=== PATIENT | female | born 1970 | race Caucasian/White ===

== ENCOUNTER 2020-01-02 15:24 | Outpatient (CLI) | payer OTHER ==
[2020-01-02] MEDS ORDERED: DIPH25CA61 PO (15:48)
[2020-01-02] MEDS ORDERED: sumatriptan PO (15:48)
== END 2020-01-02 23:59 | disposition home or self-care (01) ==
LOC: MERGE 15:24 → STAR 15:24
PROVIDERS: ATTEND Orthopaedic Surgery
DX: Z11.59 Encounter for screening for other viral diseases (principal)
CPT/HCPCS: U0001-CS

== ENCOUNTER 2020-01-08 05:31 | Day surgery (SDC) | payer OTHER ==
[~2020-01-08] VITALS: Ht 170.2 cm; Wt 94.8 kg
[~2020-01-08 05:31] MED LIST: DIPH25CA61 PO; sumatriptan PO
[2020-01-08] MEDS ORDERED: LACTATED RINGERS 1,000 ML IV SCH (05:52)
[2020-01-08] MEDS ORDERED: TUMERIC PO (05:56)
[2020-01-08] MEDS ORDERED: GLUC1CAP48 PO (05:56)
[2020-01-08] MEDS ORDERED: LORA10TA72 PO (05:56)
[2020-01-08] MEDS ORDERED: MULT-658 PO (05:56)
[2020-01-08] MEDS ORDERED: CHOL10003 PO (05:56)
[2020-01-08 05:58] VITALS: BP 112/80
[2020-01-08] MEDS ORDERED: LIDOCAINE-MPF 1%, 2ML INFIL ONE (06:00)
[2020-01-08] MEDS ORDERED: CHLORHEXIDINE 15 ML UDC MM ONE (06:00)
[2020-01-08] MEDS ORDERED: PHENYLEPHRINE 10 MG/ML ONE (06:06)
[2020-01-08] MEDS ORDERED: ROPIvacaine/PF 0.2%, 20 ML ONE ×3 (06:08)
[2020-01-08] MEDS ORDERED: MIDAZOLAM 1 MG/ML, 2ML ONE (06:10)
[2020-01-08] MEDS ORDERED: KETOROLAC 30 MG/1 ML ONE (06:10)
[2020-01-08] MEDS ORDERED: FENTANYL PF 250 MCG/5ML ONE (06:10)
[2020-01-08] MEDS ORDERED: DEXAMETHASONE 4 MG/ML, 1ML ONE (06:12)
[2020-01-08] MEDS ORDERED: GLYCOPYRROLATE 0.2MG/1ML, 5ML ONE (06:12)
[2020-01-08] MEDS ORDERED: ROCURONIUM 10MG/ML,5ML ONE (06:12)
[2020-01-08] MEDS ORDERED: CEFAZOLIN 1,000 MG ONE (06:12)
[2020-01-08] MEDS ORDERED: PROPOFOL 10 MG/ML, 20ML ONE (06:12)
[2020-01-08] MEDS ORDERED: ONDANSETRON 2MG/ML, 2ML ONE (06:12)
[2020-01-08] MEDS ORDERED: NEOSTIGMINE 1 MG/ML, 10ML ONE (06:12)
[2020-01-08] MEDS ORDERED: BUPIVACAINE/PF-EPI 0.25% 1:200K ONE (06:17)
[2020-01-08] MEDS ORDERED: FENTANYL PF 100 MCG/2ML IV PRN (06:30)
[2020-01-08] MEDS ORDERED: HYDROmorphone 1 MG/ML, 1ML INJ IVPush PRN (06:30)
[2020-01-08] MEDS ORDERED: ACETAMINOPHEN 500 MG TABLET PO ONE (06:30)
[2020-01-08] MEDS ORDERED: GABAPENTIN 300 MG CAPSULE PO ONE (06:30)
[2020-01-08] MEDS ORDERED: morphine SULFATE 10 MG/ML, 1ML IVPush PRN (06:30)
[2020-01-08] MEDS ORDERED: MEPERIDINE/PF 25MG/0.5ML IVPush PRN (06:30)
[2020-01-08] MEDS ORDERED: PROMETHAZINE 25 MG/ML, 1ML IVPush PRN (06:30)
[2020-01-08] MEDS ORDERED: HALOPERIDOL 5 MG/ML IV PRN (06:30)
[2020-01-08] MEDS ORDERED: LABETALOL 5MG/ML, 20ML IV PRN (06:30)
[2020-01-08] MEDS ORDERED: SCOPOLAMINE 1MG PATCH TD SCH (06:30)
[2020-01-08] MEDS ORDERED: OXYcodone 5 MG/5 ML ORAL.SOL UDC PO PRN (06:30)
[2020-01-08] MEDS ORDERED: hydrALAzine 20 MG/ML, 1ML IV PRN (06:30)
[2020-01-08] MEDS ORDERED: OXYcodone 5 MG/5 ML ORAL.SOL UDC ONE (08:52)
[2020-01-08] MEDS ORDERED: FENTANYL PF 100 MCG/2ML ONE (09:11)
== END 2020-01-08 11:05 | disposition home or self-care (01) ==
LOC: OUT 05:31
PROVIDERS: ATTEND Orthopaedic Surgery
DX: S46.011A Strain of muscle(s) and tendon(s) of the rotator cuff of right shoulder, initial encounter (principal); S43.431A Superior glenoid labrum lesion of right shoulder, initial encounter; S43.51XA Sprain of right acromioclavicular joint, initial encounter; M75.41 Impingement syndrome of right shoulder; G43.909 Migraine, unspecified, not intractable, without status migrainosus; M79.7 Fibromyalgia; Z79.1 Long term (current) use of non-steroidal anti-inflammatories (NSAID); Z79.899 Other long term (current) drug therapy; Z88.2 Allergy status to sulfonamides; Z82.61 Family history of arthritis; Z82.3 Family history of stroke; Z82.49 Family history of ischemic heart disease and other diseases of the circulatory system; X58.XXXA Exposure to other specified factors, initial encounter; Y93.89 Activity, other specified; Y92.89 Other specified places as the place of occurrence of the external cause; Y99.0 Civilian activity done for income or pay
CPT/HCPCS: 29823; 29824; 29826; 29827; 64415; C1713; J0690; J1100; J1885; J2250; J2370; J2405; J2704; J2710; J2795; J3010; J7120